=== PATIENT | male | born 1955 | race American Indian/Alaskan Native ===

== ENCOUNTER 2016-07-15 22:44 | Emergency (ER) | payer MEDICARE ==
--- NOTE | 2016-07-16 00:02 | Emergency Department Report ---
HPI - General Time Seen by Provider: 07/15/16 23:43 - HPI HPI: This is a 60-year-old -[place] male presents to the emergency department by EMS with complaint of some generalized chest pain that has been going on since last night. However today it appeared worse and his daughter became concerned and called EMS. He was given an omeprazole prior to presentation. The patient recently moved down here from [place] to attend the [facility] [place] for his acute lymphocytic leukemia. He also has a past medical history of COPD on 2 L oxygen, atrial fibrillation. He is not on any blood thinners currently secondary to a previous brain mass. He recently had some fluid drained from the lungs. He does not have any other physicians and Zina at this time. He is not ambulatory at baseline and has some sacral ulcerations that are painful after spending some time recently in the hospital. ED Review of Systems ROS: Stated complaint: CHEST PAIN Other details as noted in HPI Comment: All other systems reviewed and negative Constitutional: denies: chills, fever Eyes: denies: eye pain, eye discharge, vision change ENT: denies: ear pain, throat pain Respiratory: shortness of breath. denies: cough, wheezing Cardiovascular: chest pain. denies: syncope Gastrointestinal: denies: abdominal pain, nausea, diarrhea Genitourinary: denies: urgency, dysuria Musculoskeletal: denies: back pain, joint swelling, arthralgia Skin: other (sacral decubitus ulcer). denies: pruritus Neurological: denies: headache, weakness, paresthesias Physical Exam - Physical Exam Physical Exam: GENERAL: Patient is ill-appearing. HEENT: Normocephalic. Atraumatic. Extraocular motions are intact. Patient has moist mucous membranes. Pupils equal reactive to light bilaterally. NECK: Supple. Trachea is midline. CHEST/LUNGS: Clear to auscultation. There is tachypnea but no accessory muscle use. There is no respiratory distress noted. Chest pain is not reproducible to palpation of chest wall. There is a chest port to the left side of the chest wall. HEART/CARDIOVASCULAR: Regular. There is mild tachycardia. There is no gallop rub or murmur. ABDOMEN: Abdomen is soft, nontender. Patient has normal bowel sounds. There is no abdominal distention. SKIN: Skin is warm and dry. There are chronic sacral decubitus wounds. NEURO: The patient is awake, alert, and oriented. The patient is cooperative. The patient has no focal neurologic deficits. The patient's speech is slow and soft but I am not sure if this is due to conversational dyspnea versus general illness. MUSCULOSKELETAL: There is no tenderness or deformity. There is no limitation range of motion. There is no evidence of acute injury. ED Course - Reevaluation(s) Reevaluation #1: I was to by the nurse that the patient and his plan to leave AGAINST MEDICAL ADVICE. I asked why they want to do this, she is concerned that he has leukemia and is in a hospital where there are "people who are vomiting and had fevers." She is also concerned that he was supposed to have a CT angiography of the chest but they were told that he would need a different IV as the one that is being used right now is not large enough or close enough to the antecubital fossa to do the CT angiography protocol. I explained in great detail that I have concern for this patient as he looks ill, has an very elevated d-dimer, tachycardia, and hyponatremia. They are currently ready for him and CT angiography and I explained that we could facilitate the imaging and admission to the hospital but they still do not want to stay any further. They understand that the patient leaving could result in worsening chest pains, shortness of breath, LA, PE, disability, coma and . They understand and still has signed out AGAINST MEDICAL ADVICE. 07/16/16 02:50 07/16/16 02:52 ED Medical Decision Making - Lab Data Result diagrams: 07/16/16 00:05 07/15/16 23:51 - EKG Data -: EKG Interpreted by Me - EKG Data Interpretation: other (electronic ventricular pacemaker, rate of 107 bpm, left axis deviation, nonspecific ST-T changes) - Radiology Data Radiology results: image reviewed interpreted by me: Chest x-ray shows an area of volume loss from the right lower lung. Otherwise there is no obvious pneumonia or pleural effusion. There is some mild pulmonary vascular congestion. - Medical Decision Making 60-year-old male with a history of brain tumor and acute lymphocytic leukemia presents with chest pain and shortness of breath. His labs show some anemia, hypernatremia, mild hyperkalemia and a very elevated d-dimer. First troponin was negative. EKG did not show any signs of ST elevation LA. A chest x-ray was done that shows a large area of volume loss from the right lower lobe but otherwise no obvious pneumonia or significant pleural effusions. The plan was going to be to have the patient have a CT angiography of the chest secondary to his elevated d-dimer and then admission to the hospital for serial troponins, telemetry and cardio consultation. However the patient and his family decided that they no longer wanted to be at the hospital and wanted to leave and follow- up with his oncologist. They are concerned that he needed another IV placed so that he could have the CT angiography done. They were concerned that he has a history of lymphoma and is in a place where "there are people with fevers and vomiting." I spoke to the family about the abnormal-appearing x-ray, his general ill appearance, elevated dimer and need for a CT angiography and plan for admission for serial troponins and cardio consultation. I explained that the patient made be having a pulmonary embolism, NSTEMI and that by leaving now that he is at risk for further chest pain, shortness of breath, respiratory failure, heart attack, disability, coma and . Despite that, the patient and his family still plan to leave and have signed out AGAINST MEDICAL ADVICE. Despite this, I once again pleaded for them to stay and let them know that if they change their mind they are welcome back with open arms and we will continue to take care of him. I then urged them to at least go to another emergency department if they are not willing to stay here as I am concerned about him. However the patient is able to answer questions appropriately and along with his family they are adamant about leaving. - Differential Diagnosis LA, PE, CHF, pneumonia Critical Care Time: No Critical care attestation.: If time is entered above; I have spent that time in minutes in the direct care of this critically ill patient, excluding procedure time. ED Disposition Clinical Impression: Shortness of breath, Hyponatremia, Elevated d-dimer, Hyperkalemia Chest pain Qualifiers: Chest pain type: unspecified Qualified Code(s): R07.9 - Chest pain, unspecified Disposition: LEFT AGAINST MED ADVICE Is pt being admited?: Yes Condition: Poor Instructions: Chest Pain (ED) Referrals: PRIMARY CARE, [Primary Care Provider] - 3-5 Days Time of Disposition: 04:58
[2016-07-16 00:14] LABS: Hematocrit 23.7 % (35.5-45.6); Hemoglobin 8.1 gm/dl (11.8-15.2); Mean Corpuscular HGB Conc 34 % (32-34); Mean Corpuscular Hemoglobin 28 pg (28-32); Mean Corpuscular Volume 83 fl (84-94); Platelet Count 206 K/mm3 (140-440); Red Blood Count 2.85 M/mm3 (3.65-5.03); Red Cell Distribution Width 15.9 % (13.2-15.2); White Blood Count 6.1 K/mm3 (4.5-11.0)
[2016-07-16 00:19] LABS: INR 1.18 (0.87-1.13)
[2016-07-16 00:20] LABS: Partial Thromboplastin Time 37.8 Sec. (24.2-36.6)
[2016-07-16 00:26] LABS: Creatine Kinase MB 2.8 ng/mL (0.0-4.0)
[2016-07-16 00:29] LABS: Alanine Aminotransferase 54 units/L (7-56); Albumin 2.9 g/dL (3.9-5); Albumin/Globulin Ratio 0.9 %; Alkaline Phosphatase 205 units/L (35-129); BUN/Creatinine Ratio 36.66; Blood Urea Nitrogen 22 mg/dL (9-20); Calcium 8.4 mg/dL (8.4-10.2); Carbon Dioxide 27 mmol/L (22-30); Chloride 88.7 mmol/L (98-107); Creatine Kinase 67 units/L (55-170); Glucose 165 mg/dL (75-100); Potassium 5.1 mmol/L (3.6-5.0); Sodium 129 mmol/L (137-145); Total Protein 6.3 g/dL (6.3-8.2)
[2016-07-16 00:37] LABS: Anion Gap 18 mmol/L
[2016-07-16] MEDS ORDERED: NACL 0.9% 500 ML 500 ML IV ONE (00:45)
[2016-07-16 02:00] LABS: Bilirubin,Urine NEG (Negative); Blood,Urine NEG (Negative); Ketones,Urine NEG (Negative); Leukocyte Esterase,Urine NEG (Negative); Mucus,Urine FEW /HPF; Nitrite,Urine NEG (Negative)
[2016-07-16] MEDS ORDERED: NACL ONE (02:56)
[2016-07-16 03:25] VITALS: BP 107/76
[2016-07-16 03:36] LABS: Basophils % (Manual) 0 % (0.0-1.8); Blastocytes % (Manual) 0 %; Eosinophils % (Manual) 0 % (0.0-4.3)
[2016-07-16 03:37] LABS: Anisocytosis 1+; Diff Status Complete; Platelet Estimate Consistent w Auto
--- NOTE | 2016-07-16 04:17 | XRay Report ---
FINAL REPORT PROCEDURE: XR CHEST 1V AP TECHNIQUE: Chest radiograph anteroposterior view. CPT 89274 HISTORY: Chest Pain COMPARISON: No prior studies are available for comparison. FINDINGS: Heart: Normal. Mediastinum/Vessels: There is a cardiac pacemaker with the battery in the left chest wall. A therapy port is noted with the reservoir in the right chest wall. Lungs/Pleural space: Significant volume loss in the right lower lung. Effusion and mild atelectasis right left lower. Mild atelectasis left lower lung. Bony thorax: No acute osseous abnormality. Life support devices: None. IMPRESSION: There is an effusion and mild atelectasis right lower lung. There is significant volume loss in the right lower lung. Mild atelectasis left lower lung..
== END 2016-07-16 03:25 | disposition left against medical advice (07) ==
LOC: ED 22:44
DX: R07.9 Chest pain, unspecified (principal); R06.02 Shortness of breath; E87.5 Hyperkalemia; R79.1 Abnormal coagulation profile; E87.1 Hypo-osmolality and hyponatremia; I48.91 Unspecified atrial fibrillation
CPT/HCPCS: 36415; 51701; 71010; 80053; 81001; 82550; 82553; 84484; 85007; 85025; 85379; 85610; 85730; 93005; 93010; 96360; 99285; J7040